=== PATIENT | female | born 1995 | race African-American/Black ===

== ENCOUNTER 2016-12-06 02:36 | Emergency (ER) | payer SELFPAY ==
[2016-12-06] MEDS ORDERED: Ibuprofen 800 MG TAB ONE (02:57)
[2016-12-06] MEDS ORDERED: Ibuprofen 100 MG/5 ML UDCUP ONE (03:01)
== END 2016-12-06 03:33 | disposition home or self-care (01) ==
LOC: ERS 02:36
DX: J06.9 Acute upper respiratory infection, unspecified (principal); J45.909 Unspecified asthma, uncomplicated; G43.909 Migraine, unspecified, not intractable, without status migrainosus
CPT/HCPCS: 99283

== ENCOUNTER 2017-01-11 17:59 | Emergency (ER) | payer SELFPAY ==
[2017-01-11] MEDS ORDERED: Ketorolac Tromethamine 60 MG/2 ML VIAL ONE (18:35)
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
== END 2017-01-11 19:30 | disposition home or self-care (01) ==
LOC: ERS 17:59
DX: S39.012A Strain of muscle, fascia and tendon of lower back, initial encounter (principal); S29.012A Strain of muscle and tendon of back wall of thorax, initial encounter; J45.909 Unspecified asthma, uncomplicated; G43.909 Migraine, unspecified, not intractable, without status migrainosus; V43.92XA Unspecified car occupant injured in collision with other type car in traffic accident, initial encounter
CPT/HCPCS: 72070; 72100; 96372; J1885